=== PATIENT | male | born 1945 | race Asian ===

== ENCOUNTER 2017-05-12 02:04 | Observation (INO) | payer MEDICAID, OTHER ==
[~2017-05-12] VITALS: Ht 175.3 cm; Wt 76.2 kg
[~2017-05-12 02:04] MED LIST: AMLO5TAB PO; ASPI-1093 PO; COZ50 PO; DABI75CA PO; GLIP5TAB4 PO; METF850T PO; METO25TA PO; ORE25 PO; PRAV40TA1 PO; TAMS0.4C96 PO
[2017-05-12 02:08] VITALS: BP 141/63
--- NOTE | 2017-05-12 02:25 | NUR ---
PATIENT PRESENTS TO ED WITH C/O CHEST PAIN AND SOB MED HX: DM/AFIB/HTN PT DENIES N/V/D; SKIN IS PINK/WARM/DRY; AAOX4 WITH EVEN AND STEADY GAIT; LUNGS CLEAR BL;PT DENIES ANY FEVER OR COUGH AT THIS TIME; PATIENT STATES PAIN OF 5/10 AT THIS TIME; PATIENT POSITIONED FOR COMFORT; HOB ELEVATED; BEDRAILS UP X2; BED DOWN. ER MD MADE AWARE OF PT STATUS.
--- NOTE | 2017-05-12 02:25 | NUR ---
PATIENT AMBULATED TO ER BED 10.
[2017-05-12 02:47] LABS: HEMOGLOBIN 13.7 g/dL (12.0-18.0); MEAN CORPUSCULAR HEMOGLOBIN 29 pg (27-31); MEAN CORPUSCULAR HGB CONC 33 g/dL (33-37); MEAN CORPUSCULAR VOLUME 89 fL (80-94); PLATELET COUNT (AUTO) 158 K/uL (140-450); RED BLOOD CELL COUNT(AUTO) 4.71 MIL/uL (4.20-6.10); RED CELL DISTRIBUTION WIDTH 12.9 % (11.6-13.7); WHITE BLOOD COUNT (AUTO) 7.1 K/uL (4.8-10.8)
[2017-05-12 02:57] LABS: CARBON DIOXIDE 24.9 mmol/L (21-32); CHLORIDE 106 mmol/L (98-107); CREATININE 1.4 mg/dL (0.7-1.3); EOSINOPHILS % (MANUAL) 4 % (0-4); GLUCOSE 149 mg/dL (74-106); LYMPHOCYTES % (MANUAL) 34 % (20-46); MONOCYTES % (MANUAL) 9 % (5-12); POTASSIUM 3.9 mmol/L (3.5-5.1); SODIUM SERUM 139 mmol/L (136-145); UREA NITROGEN, BLOOD 23 mg/dL (7-18)
[2017-05-12 03:02] LABS: ALBUMIN 3.7 g/dL (3.4-5.0); ASPARTATE AMINOTRANSFERASE 14 U/L (15-37); TOTAL BILIRUBIN 0.5 mg/dL (0.0-1.0)
--- NOTE | 2017-05-12 03:27 | NUR ---
Patient appears to be resting comfortably in bed. Vital Signs within normal limits. Respirations even and unlabored.
[2017-05-12] MEDS ORDERED: MORPHINE SULFATE 2 MG/ML SYR IVP PRN (04:30)
[2017-05-12] MEDS ORDERED: ONDANSETRON 4 MG/2 ML VIAL IVP PRN (04:30)
[2017-05-12] MEDS ORDERED: METOPROLOL 25 MG TAB PO ONE (04:40)
[2017-05-12] MEDS ORDERED: amLODIPine 5 MG TAB PO ONE (04:40)
--- NOTE | 2017-05-12 05:11 | NUR ---
Patient will be admitted to care of DR VELEZ. Admited to OBS/TELE. Will go to room 118B. Belongings list completed. Report to MOLLY YING.
[2017-05-12 05:15] VITALS: BP 127/58
--- NOTE | 2017-05-12 05:15 | NUR ---
RECEIVED PT FROM ER VIA KAMILAH. PT AMBULATORY. AOX4 SPEAKS [place] AND TAGALOG. LEFT FA #18G. ON ROOM AIR. CARDIAC DIET. DISCUSSED PLAN OF CARE. VITAL SIGNS STABLE AT THIS TIME. TELEMETRY-HX A.FIB HOWEVER BRADYCARDIA AT THE MOMENT. ALSO HX OR DM, HTN. ADMITTED FOR CHEST PAIN AND SOB. NO S/S OF RESPIRATORY DISTRESS. BED IN LOWEST POSITION. WILL CONTINUE TO MONITOR.
[2017-05-12] MEDS ORDERED: glipiZIDE 5 MG TAB PO SCH (06:30)
--- NOTE | 2017-05-12 06:53 | NUR ---
PATIENT HAS BEEN SCREENED AND CATEGORIZED MODERATE NUTRITION RISK. PATIENT WILL BE SEEN WITHIN 3-5 DAYS OF ADMISSION. 05/14/17-05/16/17 ALANNA RINCON MS, RDN
--- NOTE | 2017-05-12 07:30 | NUR ---
RECEIVED PT REPORT FROM HADOOP ARCHITECT NURSE. PT AMBULATORY. VERONICA SPEAKS [place] AND TAGALOG. IV NOTED TO THE LEFT FA #18G, INTACT AND PATENT, ASYMPTOMATIC. NO S/S OF ACUTE DISTRESS ON ROOM AIR. CARDIAC DIET. ON TELE MONITOR. VITALS TAKEN, INITIAL ASSESSMENT DONE. C/O CHEST PAIN 06/04 AT THIS TIME, NON RADIATING. REFUSED PAIN MEDS. PT STATED HE JUST WANTS TO REST. BED IN LOWEST POSITION. WILL CONTINUE TO MONITOR. Addendum: 05/12/17 at 1923 by Ru Figueroa RN IV CATH SALINE LOCKED
--- NOTE | 2017-05-12 07:31 | NUR ---
ENDORSED PT CARE TO NURSE TONJA. PT STABLE AT THIS TIME.
[2017-05-12 08:00] VITALS: BP 138/89
[2017-05-12] MEDS ORDERED: TAMSULOSIN 0.4 MG CAP PO SCH (08:30)
[2017-05-12] MEDS ORDERED: DABIGATRAN ETEXILATE MESYLAT 75 MG CAP PO SCH (09:00)
[2017-05-12] MEDS ORDERED: LOSARTAN 25 MG TAB PO SCH (09:00)
--- NOTE | 2017-05-12 09:00 | NUR ---
LUNG SOUNDS CLEAR TO AUSCULTATION. ABD SOUNDS ACTIVE, LAST BM 05/11 MORNING. SCHEDULED MED GIVEN.
[2017-05-12 11:35] LABS: CREATINE KINASE MB 2.6 ng/mL (0-3.6)
--- NOTE | 2017-05-12 11:45 | NUR ---
PT IS SLEEPING, NO S/S OF ACUTE DISTRESS. CHEST PAIN 3/10 LESS THAN BEFORE. MADE PT AWARE OF NEXT LAB DRAW AND DISCHARGE ORDER.
[2017-05-12 12:00] VITALS: BP 129/66
--- NOTE | 2017-05-12 12:15 | NUR ---
PT IS SITTING UP AND EATING DINNER. NO C/O OF PAIN. NO S/S OF ACUTE DISTRESS.
--- NOTE | 2017-05-12 14:03 | NUR ---
PT SLEEPING, NO S/S OF ACUTE DISTRESS NOTED.
[2017-05-12 16:00] VITALS: BP 148/62
--- NOTE | 2017-05-12 16:00 | NUR ---
PT IS USING SMARTPHONE. NO S/S OF ACUTE DISTRESS NOTED. DENIES PAIN. VITALS TAKEN.
--- NOTE | 2017-05-12 18:00 | NUR ---
CHATTING WITH FREINDS, NO C/O PAIN. NO S/S OF ACUTE DISTRESS.
--- NOTE | 2017-05-12 19:20 | NUR ---
ENDORSED PT TO [employer] SALES ASSOCIATE RN, TOMMY. DC PT IF 3RD TROP IS NEGATIVE.
--- NOTE | 2017-05-12 19:25 | NUR ---
RECEIVED PT IN STABLE CONDITION FROM AM NURSE. AAO X4. WITH NO ACUTE DISTRESS NOTED. PT IS ON TELE-SR. AWAITING FOR LAST RESULT OF TROPONIN . IF NEGATIVE ,PT IS FOR DISCHARGE HOME . PT MADE AWARE. THER ARE FRIENDS AT BEDSIDE WHO ARE AVAILABLE TO BRING PT HOME. V/S TAKEN . STABLE. CALL LIGHT STILL WITHIN EASY REACH. WILL CONTINUE TO MONITOR.
--- NOTE | 2017-05-12 19:45 | NUR ---
TROPONIN ALL NEGATIVE. ALL DISCHARGE PAPERS PREPARED. INSTRUCTION REGARDING APPOINTMENT WITH PCP AND INSTANT POWDER SUPERVISOR GIVEN TO PT AND VERBALIZED UNDERSTANDING. ID BAND ,IV ACCESS AND TELE BOX REMOVED. DC HOME IN STABLE CONDITION BY WHEELING DOWN TO FRONT LOBBY. HOME IN PRIVATE CAR.
[2017-05-12] MEDS ORDERED: SIMVASTATIN 20 MG TAB PO SCH (21:00)
[2017-05-13] MEDS ORDERED: ASPIRIN 81 MG TAB.CHEW PO SCH (09:00)
== END 2017-05-12 19:45 | disposition home or self-care (01) ==
LOC: MED 02:04 → MTU 04:30
PROVIDERS: ADMIT Internal Medicine; ATTEND Internal Medicine
DX: R07.89 Other chest pain (principal); I10 Essential (primary) hypertension; E11.9 Type 2 diabetes mellitus without complications; I48.2 Chronic atrial fibrillation; Z79.899 Other long term (current) drug therapy
CPT/HCPCS: 36415; 71045; 80053; 82550; 82553; 83690; 83880; 84484; 85025; 87081; 93005; 99285; G0378